=== PATIENT | male | born 1970 | race Caucasian/White ===

== ENCOUNTER 2017-01-28 17:35 | Emergency (ER) | payer BC ==
[2017-01-28] MEDS ORDERED: Albuterol 0.083% 2.5 MG/3 ML Neb Soln NEB ONE (17:57)
[2017-01-28] MEDS ORDERED: Albuterol 0.083% 2.5 MG/3 ML Neb Soln ONE (17:58)
[2017-01-28 19:17] LABS: CHLORIDE,CL 105 mmol/L (98-115); SODIUM,NA 142 mmol/L (136-145)
[2017-01-28] MEDS ORDERED: Albuterol/Ipratropium 3.0-0.5 MG/3 ML Neb Soln NEB ONE (19:28)
[2017-01-28] MEDS ORDERED: Albuterol/Ipratropium 3.0-0.5 MG/3 ML Neb Soln ONE (19:43)
--- NOTE | 2017-01-28 20:06 | EDM.PDOC ---
ED HPI GENERAL MEDICAL PROBLEM - General Chief Complaint: Respiratory Problem Stated Complaint: SHORTNESS OF BREATH Time Seen by Provider: 01/28/17 17:40 Source of Information: Reports: Patient, Family () History Limitations: Reports: No Limitations - History of Present Illness INITIAL COMMENTS - FREE TEXT/NARRATIVE: With 46-year-old gentleman presents to emergency room with complaints of cough and shortness of breath. Patient noticed on Monday he started to have a cold and the last 24 hours he's felt that this gone down into his chest. He is now having increasing difficulties with his breathing. He denies any chest pain or palpitations. He denies any fever or chills. He denies sore throat ear pain. He is been taken a decongestant. He had an episode of pneumonia last year he felt that he's never really recovered from that entirely. He did have an albuterol inhaler after his bout with pneumonia last year. This was never refilled. He is not a smoker. He denies significant abdominal pain nausea or vomiting no diarrhea. His O2 saturation upon arrival was 88% on room air. Patient was having some wheezing in his lungs. Onset Date: 01/25/17 Duration: Day(s):, Getting Worse Location: Reports: Chest Quality: Reports: Ache Severity: Moderate Improves with: Reports: None Worsens with: Reports: None Associated Symptoms: Reports: cough w sputum, Shortness of Breath. Denies: Chest Pain, Diaphoresis, Fever/Chills, Nausea/Vomiting, Syncope Treatments ENOLOGIST: Reports: Acetaminophen, Other (see below) (decongestant guaifenesin) Left Chest Pain Score (Numeric/FACES): 3 - Related Data Allergies Allergy/AdvReac Type Severity Reaction Status Date / Time No Known Allergies Allergy Verified 01/28/17 17:55 Home Meds: Home Meds Naproxen Sodium [Aleve] 220 mg PO Q4H PRN 01/28/17 [History] guaiFENesin [Guaifenesin] 400 mg PO Q4H PRN 01/28/17 [History] Past Medical History Respiratory History: Reports: SOB Endocrine/Metabolic History: Reports: Obesity/BMI 30+ - Infectious Disease History Infectious Disease History: Reports: C-Difficile, Measles, Mumps, Shingles - Past Surgical History HEENT Surgical History: Reports: Tonsillectomy Musculoskeletal Surgical History: Reports: Arthroscopic Knee Social & Family History - Family History Cardiac: Reports: Heart Murmur, Hypertension Endocrine/Metabolic: Reports: Diabetes, type II Oncologic: Reports: Prostate - Tobacco Use Smoking Status *Q: Never Smoker - Caffeine Use Caffeine Use: Reports: Coffee, Tea - Recreational Drug Use Recreational Drug Use: No ED ROS GENERAL - Review of Systems Review Of Systems: See Below Constitutional: Denies: Fever, Chills, Diaphoresis HEENT: Reports: Rhinitis. Denies: Ear Pain, Throat Pain, Throat Swelling, Vision Change Respiratory: Reports: Shortness of Breath, Wheezing, Cough, Sputum. Denies: Hemoptysis Cardiovascular: Denies: Chest Pain, Blood Pressure Problem, Edema Endocrine: Reports: No Symptoms GI/Abdominal: Reports: No Symptoms : Reports: No Symptoms Musculoskeletal: Reports: No Symptoms Skin: Reports: No Symptoms Neurological: Denies: Headache, Numbness, Trouble Speaking Psychiatric: Reports: No Symptoms Hematologic/Lymphatic: Reports: No Symptoms Immunologic: Reports: No Symptoms ED EXAM, GENERAL - Physical Exam Exam: See Below Exam Limited By: No Limitations General Appearance: Alert, WD/WN, No Apparent Distress Eye Exam: Bilateral Eye: EOMI Ears: Normal External Exam, Hearing Grossly Normal, Normal TMs Ear Exam: Bilateral Ear: TM normal Nose: Normal Inspection, Normal Mucosa Throat/Mouth: Normal Inspection, Normal Lips, No Airway Compromise, Other ( posterior nasal drainage) Head: Atraumatic, Normocephalic Neck: Normal Inspection, Supple Respiratory/Chest: No Respiratory Distress, Decreased Breath Sounds, Wheezing ( expiratory). No: Accessory Muscle Use, Retractions (I like it might think is we are anything for an MRI leis, he get bad again) Cardiovascular: Normal Peripheral Pulses, Regular Rate, Rhythm, No Murmur GI/Abdominal: Soft Extremities: Normal Inspection, No Pedal Edema, Normal Capillary Refill Neurological: Alert, Oriented, No Motor/Sensory Deficits Psychiatric: Normal Affect, Normal Mood Skin Exam: Warm, Dry, Intact, Normal Color Lymphatic: No Adenopathy Course - Vital Signs Last Recorded V/S: Last Vital Signs Temp 98.7 F 01/28/17 17:47 Pulse 93 01/28/17 19:45 Resp 18 01/28/17 17:47 BP 151/90 H 01/28/17 17:47 Pulse Ox 92 L 01/28/17 19:45 - Orders/Labs/Meds Orders: Active Orders 24 hr Category Date Time Status RT Aerosol Therapy [RC] ASDIRECTED Care 01/28/17 17:57 Active RT Aerosol Therapy [RC] ASDIRECTED Care 01/28/17 19:45 Active CXR [Chest 2V] [CR] Stat Exams 01/28/17 17:58 Taken Labs: Laboratory Tests 01/28/17 01/28/17 01/28/17 Range/Units 18:30 18:30 18:30 WBC 13.4 H (5.0-10.0) 10^3/uL RBC 5.06 (4.50-6.00) 10^6/uL Hgb 14.8 (13.0-17.0) g/dL Hct 45.7 (40.0-52.0) % MCV 90.3 (82.0-92.0) fL MCH 29.2 (27.0-31.0) pg MCHC 32.3 (32.0-36.0) g/dL RDW 11.8 (11.5-14.5) % Plt Count 332 H (150-300) 10^3/uL MPV 8.1 (7.4-10.4) fL Neut % (Auto) 68.5 (50.0-70.0) % Lymph % (Auto) 12.9 L (20.0-40.0) % [place] % (Auto) 8.0 (2.0-8.0) % Eos % (Auto) 9.3 H (1.0-3.0) % Baso % (Auto) 1.3 H (0.0-1.0) % Neut # (Auto) 9.2 H (2.5-7.0) 10^3/uL Lymph # (Auto) 1.7 (1.0-4.0) 10^3/uL [place] # (Auto) 1.1 H (0.1-0.8) 10^3/uL Eos # (Auto) 1.2 H (0.1-0.3) 10^3/uL Baso # (Auto) 0.2 H (0.0-0.1) 10^3/uL Sodium 142 (136-145) mmol/L Potassium 3.5 (3.3-5.3) mmol/L Chloride 105 (98-115) mmol/L Carbon Dioxide 24.1 (21.0-32.0) mmol/L BUN 9 (6-25) mg/dL Creatinine 1.01 (0.51-1.17) mg/dL Est Cr Clr Drug Dosing 102.18 mL/min Estimated GFR (MDRD) > 60 mL/min Glucose 108 (70-110) mg/dL Calcium 9.1 (8.7-10.3) mg/dL B-Natriuretic Peptide 13 (0-100) pg/mL Meds: Medications Discontinued Medications Generic Name Dose Route Start Last Admin Trade Name Naeem PRN Reason Stop Dose Admin Albuterol 2.5 mg 01/28/17 17:57 01/28/17 18:11 Proventil Neb Soln NEB 01/28/17 17:58 2.5 mg ONETIME ONE Administration Albuterol Confirm 01/28/17 17:58 01/28/17 18:11 Proventil Neb Soln Administered 01/28/17 17:59 Not Given Dose 2.5 mg .ROUTE .STK-MED ONE Albuterol/Ipratropium Confirm 01/28/17 19:43 Duoneb 3.0-0.5 Mg/3 Ml Administered 01/28/17 19:44 Dose 3 ml .ROUTE .STK-MED ONE Albuterol/Ipratropium 3 ml 01/28/17 19:28 01/28/17 19:45 Duoneb 3.0-0.5 Mg/3 Ml NEB 01/28/17 19:29 3 ml ONETIME ONE Administration - Re-Assessments/Exams Free Text/Narrative Re-Assessment/Exam: 01/28/17 20:14 Patient reports improvement with both albuterol and DuoNeb treatment. Patient now states that he is able to take a full deep breath and feels like he is moving air much better Departure - Departure Time of Disposition: 20:35 Disposition: Home, Self-Care 01 Condition: Good Clinical Impression: Acute asthma - Discharge Information Instructions: Asthma, Adult, Upper Respiratory Infection, Adult, [id number] Referrals: Dav Vyas, VENEER STAPLER [Primary Care Provider] - Forms: ED Department Discharge Additional Instructions: 1. Prednisone 20 mg daily for 5 days. 2. Symbicort inhaler 2 puffs 2 times per day as needed for shortness of breath. 3. Tylenol 650 mg every 6 hours as needed for aches and fevers. 4. Encourage oral hydration of water 5. Rest over the weekend. 6. Follow-up with your primary care early next week if symptoms persist. 7. He may continue with your decongestant as needed. - My Orders Last 24 Hours: My Active Orders 01/28/17 17:57 RT Aerosol Therapy [RC] ASDIRECTED 01/28/17 17:58 CXR [Chest 2V] [CR] Stat 01/28/17 19:45 RT Aerosol Therapy [RC] ASDIRECTED - Assessment/Plan Last 24 Hours: My Active Orders 01/28/17 17:57 RT Aerosol Therapy [RC] ASDIRECTED 01/28/17 17:58 CXR [Chest 2V] [CR] Stat 01/28/17 19:45 RT Aerosol Therapy [RC] ASDIRECTED Assessment:: Acute asthma Upper respiratory infection Plan: 1. Prednisone 20 mg daily for 5 days. 2. Symbicort inhaler 2 puffs 2 times per day as needed for shortness of breath. 3. Tylenol 650 mg every 6 hours as needed for aches and fevers. 4. Encourage oral hydration of water 5. Rest over the weekend. 6. Follow-up with your primary care early next week if symptoms persist. 7. He may continue with your decongestant as needed.
[2017-01-28] MEDS ORDERED: predniSONE 20 MG Tab PO ONE (20:26)
== END 2017-01-28 20:45 | disposition home or self-care (01) ==
LOC: KA.ED 17:35
DX: J44.1 Chronic obstructive pulmonary disease with (acute) exacerbation (principal)
CPT/HCPCS: 36415; 71020; 80048; 83880; 85025; 94640; 99285; A9270; J7620

== ENCOUNTER 2024-01-09 07:59 | Day surgery (SDC) | payer SELFPAY ==
[2024-01-09] MEDS ORDERED: Sodium Chloride 0.9% 10 ML Syringe FLUSH PRN (08:00)
[2024-01-09] MEDS: Lactated Ringers 1,000 ML IV SCH (08:29)
[2024-01-09] MEDS ORDERED: Midazolam 1 MG/ML 2 ML SDV ONE (08:49)
[2024-01-09] MEDS ORDERED: Propofol 200 MG/20 ML SDV ONE (08:49)
== END 2024-01-09 11:15 | disposition home or self-care (01) ==
LOC: KA.SDS 07:59
PROVIDERS: ATTEND Surgery
DX: Z12.11 Encounter for screening for malignant neoplasm of colon (principal); D12.0 Benign neoplasm of cecum; K52.9 Noninfective gastroenteritis and colitis, unspecified; K63.5 Polyp of colon; R19.5 Other fecal abnormalities; I10 Essential (primary) hypertension; J45.909 Unspecified asthma, uncomplicated; Z79.899 Other long term (current) drug therapy
CPT/HCPCS: 00811; J2250; J2704; J3490; J7120